=== PATIENT | male | born 1960 | race African-American/Black ===

== ENCOUNTER 2018-11-04 18:29 | Inpatient (IN) | payer OTHER ==
[~2018-11-04] VITALS: Ht 157.5 cm; Wt 92.5 kg
[2018-11-04] MEDS ORDERED: MORPHINE SULFATE 4 MG/ML SYR/VIAL IV ONE (19:45)
[2018-11-04] MEDS ORDERED: ONDANSETRON HCL 4 MG/2 ML VIAL IV ONE (19:45)
[2018-11-04 19:59] LABS: Basophils # (auto) 0 uL; Basophils % (auto) 0.2 % (0.0-2.0); Eosinophils # (auto) 0 uL; Eosinophils % (auto) 0.1 % (0.0-7.0); Hematocrit 39.3 % (41.0-53.0); Hemoglobin 13.4 g/dL (13.5-17.5); Lymphocytes # (auto) 0.7 uL; Lymphocytes % (auto) 8.6 % (10.0-50.0); Mean Corpuscular Hemoglobin 31.2 pg (28.0-32.0); Mean Corpuscular Hgb Conc. 34.1 g/dL (32.0-36.0); Mean Corpuscular Volume 91.4 fL (80.0-100.0); Monocytes # (auto) 0.3 uL; Monocytes % (auto) 4.2 % (0.0-12.0); Neutrophils # (auto) 6.7 uL; Neutrophils % (auto) 86.9 % (37.0-80.0); Platelet Count (auto) 403 10^3/uL (140-450); Red Cell Distribution Width 15.3 % (11.8-14.3); White Blood Cell 7.7 10^3/uL (4.4-10.8)
[2018-11-04 20:14] LABS: Albumin 3.3 g/dL (3.4-5.0); Calcium 8.2 mg/dL (8.5-10.1)
[2018-11-04] MEDS ORDERED: METOPROLOL TARTRATE 1MG/1ML-5ML VIAL IV ONE (20:15)
[2018-11-04] MEDS ORDERED: HYDROmorphone HCL 2 MG/ML VL IV ONE (20:15)
[2018-11-04 20:17] LABS: BUN/Creatinine Ratio 18.7; Bilirubin, Total 1.5 mg/dL (0.2-1.0); Total Protein 6.8 g/dL (6.4-8.2)
[2018-11-04] MEDS ORDERED: cefTRIAXone 1GM/50ML D5W 50 ML IV ONE ×2 (21:00→21:30)
[2018-11-04] MEDS ORDERED: ENOXAPARIN SOD 100 MG/1 ML SYRINGE SC ONE (21:30)
[2018-11-04] MEDS ORDERED: DIGOXIN (250MCG/ML) 2 ML AMPULE IV ONE (21:30)
[2018-11-04] MEDS ORDERED: DILTIAZEM HCL 25 MG/5 ML VIAL IV ONE (22:15)
[2018-11-04 22:39] LABS: INR 1.03 (0.9-1.15)
[2018-11-05] MEDS ORDERED: FUROSEMIDE 20 MG/2 ML VIAL IV ONE
[2018-11-05] MEDS ORDERED: DILTIAZEM HCL 25 MG/5 ML VIAL IV ONE (00:45)
[2018-11-05 01:11] LABS: Urine Bacteria NONE SEEN /hpf (None Seen); Urine Blood Negative /uL (Negative); Urine Specific Gravity 1.017 (1.001-1.035); Urine WBC 2 /hpf (0 - 3)
[2018-11-05 01:26] LABS: Alcohol, Urine < 3.0 mg/dL (0-5); Amphetamine Screen, Urine POSITIVE (NEGATIVE); Barbiturate Scree,Urine NEGATIVE (NEGATIVE); Benzodiazephine Screen, Urine NEGATIVE (NEGATIVE); Cannabinoid Screen, Urine NEGATIVE (NEGATIVE); Cocaine Screen, Urine NEGATIVE (NEGATIVE); Opiate Scree,Urine POSITIVE (NEGATIVE); Phencyclidine Screen, Urine NEGATIVE (NEGATIVE)
[2018-11-05] MEDS ORDERED: ONDANSETRON HCL 4 MG/2 ML VIAL IV PRN (01:45)
[2018-11-05] MEDS ORDERED: chlordiazePOXIDE HCL 25 MG CAP PO PRN (01:45)
[2018-11-05] MEDS ORDERED: MORPHINE SULFATE 4 MG/ML SYR/VIAL IV PRN (01:45)
[2018-11-05] MEDS ORDERED: ACETAMINOPHEN 500 MG TAB PO PRN (01:45)
[2018-11-05] MEDS ORDERED: LORazepam 2MG/ML-1ML VIAL IV PRN (01:45)
[2018-11-05] MEDS ORDERED: NITROGLYCERIN 0.4 MG SL TAB SL PRN (01:45)
[2018-11-05] MEDS ORDERED: AMIODARONE HCL (50 MG/ ML) 3 ML VIAL IV ONE ×2 (02:11→02:12)
[2018-11-05] MEDS ORDERED: AMIODARONE HCL 150 MG in D5W 5% 100 ML IV ONE (02:30)
[2018-11-05] MEDS ORDERED: AMIODARONE HCL 900 MG in DEXTROSE 500 ML IV SCH (02:30)
[2018-11-05] MEDS: AMIODARONE HCL 900 MG in DEXTROSE 500 ML IV SCH (08:51)
[2018-11-05 08:54] LABS: Cholesterol 136 mg/dL (< 200)
[2018-11-05 08:56] LABS: HDL Cholesterol 64 mg/dL (40-59); LDL Cholesterol 62 mg/dL (< 100); Triglycerides 41 mg/dL (< 150)
[2018-11-05] MEDS ORDERED: METOPROLOL TARTRATE 25 MG TAB PO SCH (10:00)
[2018-11-05] MEDS: ASPirin-EC 81 mg tab PO SCH (10:11)
[2018-11-05] MEDS: POTASSIUM CHL 20 Meq TABLET PO SCH (10:11)
[2018-11-05] MEDS: FAMOTIDINE 20 MG TAB PO SCH (10:11)
[2018-11-05] MEDS: ENOXAPARIN SOD 100 MG/1 ML SYRINGE SC SCH ×2 (10:11→21:31)
[2018-11-05] MEDS: METOPROLOL SUCCINATE XL 50 MG TAB PO SCH (10:11)
[2018-11-05] MEDS: FUROSEMIDE 40 MG/4 ML VIAL IV SCH (12:09)
[2018-11-05] MEDS: ENALAPRIL MALEATE 2.5 MG TAB PO SCH (12:09)
[2018-11-05] MEDS: NITROGLYCERIN 0.2MG/HR TOPICAL PATCH TD SCH (12:09)
[2018-11-05 20:15] VITALS: BP 134/85
--- NOTE | 2018-11-05 20:15 | NUR ---
Initial Assessment Patient received from ER. pt transferred himself to KEITH bed independently without incident. Patient is awake, alert, and oriented. Denies any pain, discomfort, palpations, SOB, or CP. RR even and unlabored with equal rise and fall on 2L o2 via N/C. PIV to RAC intact and patent with no s/s of infiltration or phlebitis-good blood return noted. Pt running Amiodarone gtt at 1/2 rate through in-line filter. Patient educated about S/S of IV infiltration and encouraged to call RN immediately if he notices any swelling or pain and he verbalized understanding. left groin has palpable mass that is non-tender to palpation and patient states pain has gone away. Neurovascular status intact with palpable distal pulses, capillary refill brisk, skin warm to touch. Patient educated about how to use the call light and encouraged to call when needing any assistance or wanting to get OOB and patient verbalized understanding. Bed in lowest position, side rails up, bed brakes set, all alarms audible, in direct view of nurses station. All VSS.
--- NOTE | 2018-11-05 20:30 | NUR ---
Consults cage operator to re-call consults because they have not been completed yet.
[2018-11-05 20:38] VITALS: BP 134/85
[2018-11-05] MEDS ORDERED: cefTRIAXone 1GM/50ML D5W 50 ML IV SCH (21:00)
--- NOTE | 2018-11-05 21:00 | NUR ---
Pending MRI Note that RN is unable to complete pelvis MRI at this time due to no MRI available on night club manager. Will endorse to day shift RN.
[2018-11-05] MEDS: ATORVASTATIN 20 MG TAB PO SCH (21:30)
--- NOTE | 2018-11-05 22:00 | NUR ---
IV insertion IV access obtained, via clean sterile technique by inserting 20 gauge catheter at LFA after 1 attempt(s). IV secured properly. No trauma to site. Patient tolerated well.
--- NOTE | 2018-11-05 22:45 | NUR ---
Ongoing photography colorist went into patients room to check on patient and he was awake, alert, and in no distress but he was having shallow tachypneic respirations at 28/min. States he feels out of breath. No accessory muscle use noted. Sp02 89% on 2L N/C. Increased oxygenation to 4L/min via N/C. Lungs auscultated for crackles in bases. RN increased HOB to fowlers position. Assessed for possible allergic reaction to Rocephin and there is no facial swelling, stridor, pruritus, or rash. Pt maintains he has no allergies. After interventions, sp02 increased to 97-99%. RR has decreased to 20-24/min. Will notify hospitalist.
--- NOTE | 2018-11-05 22:52 | NUR ---
Hospitalist paged re: Update on patient status. Waiting for call back.
--- NOTE | 2018-11-05 23:25 | NUR ---
Hospitalist called back updated on status of patient, oxygenation issues, heart rhythm/rate, BP, lung sounds, tachypnea. She ordered: -administer 40mg lasix IV x1 -continue amiodarone gtt until inspector elevators sees patient RN performed TORB and CHRONOMETER ASSEMBLER AND ADJUSTER verified order to be correct. No additional orders received.
[2018-11-05] MEDS ORDERED: FUROSEMIDE 40 MG/4 ML VIAL IV ONE (23:30)
[2018-11-06] VITALS: BP 134/96
--- NOTE | 2018-11-06 01:00 | NUR ---
Ongoing Assessment SOB has subsided. O2 is back down to 2L via N/C. RR even and unlabored with equal rise and fall. Voided 550ml post Lasix administration. Patient provided with additional blankets for comfort and room made warmer. Pt continues to deny pain. Sleeping intermittently. Visitor at bedside. Patient turning self independently and frequently. Neurovascular status intact. Pt states he is comfortable. States "no" when asked if he needs anything. Patient does remain passive to care and interventions-RN providing education and encouragement. Fall/safety precautions intact, all alarms audible. Call light, urinal, and side table are within reach. All VSS.
--- NOTE | 2018-11-06 01:45 | NUR ---
Pt. refusing oxygen RN went into patient's room due to sp02 in the 80's. Pt had nasal cannula off. RN attempted to place nasal cannula back on face and patient is refusing. Patient states "will you stop waking me up every 5 minutes!" "Will you do that!" primary RN and boarding house manager explained to patient the importance of wearing oxygen and the risks of having low oxygen levels in body. Patient continues to refuse to wear nasal cannula. Pt is asymptomatic with no accessory muscle use, SOB, or tachypnea noted. Sp02 fluctuates between mid 80's to 93%. Patient's significant other is at bedside and heard education as well. Note that patient is alert and oriented x4. RN will continue to monitor, educate, and encourage oxygen use.
[2018-11-06] MEDS: AMIODARONE HCL 900 MG in DEXTROSE 500 ML IV SCH (02:05)
--- NOTE | 2018-11-06 03:02 | NUR ---
EKG taken Pt requesting not to be bothered but 0300 lab draw due. RN went in to [facility] and performed ordered 0600 EKG at this time. Note that patient has since put his oxygen back on.
[2018-11-06 04:00] VITALS: BP 135/46
--- NOTE | 2018-11-06 05:45 | NUR ---
IV removal/pt refusing new IV IV to RAC DC'd with clean sterile technique, catheter fully intact. Pressure dressing applied to site. Patient tolerated well. Note there is no erythema, edema, or phlebitis to IV site. NOTE: d/c due to leaking Pt refusing new IV insertion at this time despite education. Amiodarone gtt switched to LFA.
--- NOTE | 2018-11-06 07:15 | NUR ---
Report given No changes or incidents to report. Pt in stable condition. Care endorsed to day shift RN.
[2018-11-06 08:00] VITALS: BP 143/94
--- NOTE | 2018-11-06 08:00 | NUR ---
Opening Shift Note Assumed care of patient, awake and alert. No S/S of distress/SOB or pain. Patient refuses to wear oxygen at times, saturation 95% at this time. Patient A-flutter, HR 96. Amiodarone running at 0.5mg/min via LT forearm, IV site asymptomatic. See interventions for complete assessment. Bed locked on low position, side rails up x2, bed alarms on at all times, call martins within reach, instructed on POC and to call for assist PRN, will continue to monitor for changes Q1hr and PRN.
--- NOTE | 2018-11-06 09:30 | NUR ---
Patient refused Lasix, Lovenox and Nitro patch because he feels he doesn't need it. Educated on the indication of his meds and repercussions of not getting it. Patient still refused.
[2018-11-06] MEDS: ASPirin-EC 81 mg tab PO SCH (09:36)
[2018-11-06] MEDS: FUROSEMIDE 40 MG/4 ML VIAL IV SCH ×2 (09:36→10:00)
[2018-11-06] MEDS: POTASSIUM CHL 20 Meq TABLET PO SCH (09:36)
[2018-11-06] MEDS: METOPROLOL SUCCINATE XL 50 MG TAB PO SCH (09:37)
[2018-11-06] MEDS: FAMOTIDINE 20 MG TAB PO SCH (09:37)
[2018-11-06] MEDS: ENALAPRIL MALEATE 2.5 MG TAB PO SCH (09:38)
[2018-11-06] MEDS: ENOXAPARIN SOD 100 MG/1 ML SYRINGE SC SCH ×4 (09:38→21:31)
[2018-11-06] MEDS: NITROGLYCERIN 0.2MG/HR TOPICAL PATCH TD SCH (10:00)
--- NOTE | 2018-11-06 11:14 | NUR ---
Called in Urology consult and paged Dr Abreu for Cardiology consult.
--- NOTE | 2018-11-06 11:16 | NUR ---
Spoke to Dr Abreu over the phone, updated on patient's status. Will come to see patient.
--- NOTE | 2018-11-06 11:37 | NUR ---
Dr Abreu at bedside to assess patient. Updated on patient's status. Received verbal order to start patient on Cardizem and Amiodarone PO and discontinue Amiodarone drip. Will carry out.
[2018-11-06] MEDS ORDERED: AMIODARONE HCL 200 MG TAB PO ONE (11:45)
[2018-11-06] MEDS ORDERED: DILTIAZEM HCL 120MG ER CAP PO ONE (11:45)
[2018-11-06 11:50] VITALS: BP 133/97
--- NOTE | 2018-11-06 13:30 | NUR ---
Dr Thomas at bedside to assess patient, updated on patients status. Will carry out new orders.
[2018-11-06] MEDS ORDERED: GADOPENTETATE DIMEGLUMINE (10MMOL/20 ML) VIAL IV ONE (13:34)
[2018-11-06] MEDS ORDERED: FOLIC ACID 1 MG TAB PO ONE (14:00)
[2018-11-06] MEDS ORDERED: THIAMINE HCL 100 MG TAB PO ONE (14:00)
--- NOTE | 2018-11-06 14:12 | NUR ---
Patient out of room via wheelchair to MRI, fall precautions in placed.
--- NOTE | 2018-11-06 15:03 | NUR ---
Patient back to room from MRI. VS WNL. Will continue to monitor.
[2018-11-06 15:50] VITALS: BP 128/67
--- NOTE | 2018-11-06 19:30 | NUR ---
Opening Shift Note Assumed care of patient, sleeping. Easily awoken by voice and touch. Patient is an grumpy mood. No S/S of distress/SOB or pain. Patient refuses to wear oxygen at times, POX 94%. Patient A-flutter, HR 89. LFA IV site asymptomatic. Physical assessment completed, see interventions. Significant other at bedside. Bed locked on low position, side rails up x2, bed alarms on at all times, call martins within reach. Instructed on POC and to call for assist PRN, will continue to monitor for changes Q1hr and PRN.
[2018-11-06 19:50] VITALS: BP 106/59
[2018-11-06] MEDS ORDERED: cefTRIAXone 1GM/50ML D5W 50 ML IV SCH (21:00)
[2018-11-06] MEDS: ATORVASTATIN 20 MG TAB PO SCH (21:56)
[2018-11-06] MEDS: AMIODARONE HCL 200 MG TAB PO SCH (21:56)
[2018-11-06] MEDS: METOPROLOL TARTRATE 25 MG TAB PO SCH (21:57)
[2018-11-07] VITALS (7 sets, daily range): BP systolic 97–126; BP diastolic 66–83
--- NOTE | 2018-11-07 00:45 | NUR ---
ROUNDS PATIENT LAYING IN BED SLEEPING. NO SOB, DISTRESS OR PAIN NOTED. VS STABLE. WILL CONTINUE TO CLOSELY MONITOR.
--- NOTE | 2018-11-07 05:30 | NUR ---
PATIENT REFUSED MORNING CARE SAID HE WILL DO IT ON HIS OWN WHEN HE WAKES UP.
[2018-11-07 06:14] LABS: Basophils # (auto) 0 uL; Basophils % (auto) 0.3 % (0.0-2.0); Eosinophils # (auto) 0.1 uL; Hematocrit 38.6 % (41.0-53.0); Hemoglobin 13.4 g/dL (13.5-17.5); Lymphocytes # (auto) 1.8 uL; Lymphocytes % (auto) 19.9 % (10.0-50.0); Mean Corpuscular Hemoglobin 31.4 pg (28.0-32.0); Mean Corpuscular Hgb Conc. 34.7 g/dL (32.0-36.0); Mean Corpuscular Volume 90.5 fL (80.0-100.0); Monocytes % (auto) 11.1 % (0.0-12.0); Neutrophils % (auto) 67.7 % (37.0-80.0); Platelet Count (auto) 337 10^3/uL (140-450); Red Blood Cells 4.26 10^6/uL (4.5-5.90); Red Cell Distribution Width 15.5 % (11.8-14.3); White Blood Cell 8.9 10^3/uL (4.4-10.8)
[2018-11-07 06:25] LABS: BUN/Creatinine Ratio 17.5; Calcium 8.2 mg/dL (8.5-10.1); Potassium 4.1 mmol/L (3.5-5.1)
--- NOTE | 2018-11-07 07:20 | NUR ---
END OF SHIFT REPORT GIVEN AND CARE ENDORSED TO DAY SHIFT RN.
--- NOTE | 2018-11-07 09:27 | NUR ---
UROLOGY JOHN BERRIOS AT BEDSIDE, EXAMINED PATIENT AND SPOKE WITH HIM AND . ALL QUESTIONS/CONCERNS ADDRESSED.
[2018-11-07] MEDS: FUROSEMIDE 40 MG/4 ML VIAL IV SCH (09:37)
[2018-11-07] MEDS: ENALAPRIL MALEATE 2.5 MG TAB PO SCH (09:37)
[2018-11-07] MEDS: AMIODARONE HCL 200 MG TAB PO SCH (09:37)
[2018-11-07] MEDS: POTASSIUM CHL 20 Meq TABLET PO SCH (09:38)
[2018-11-07] MEDS: FAMOTIDINE 20 MG TAB PO SCH (09:38)
[2018-11-07] MEDS: METOPROLOL TARTRATE 25 MG TAB PO SCH (09:39)
[2018-11-07] MEDS: ENOXAPARIN SOD 100 MG/1 ML SYRINGE SC SCH (09:39)
[2018-11-07] MEDS: ASPirin-EC 81 mg tab PO SCH (09:39)
[2018-11-07] MEDS ORDERED: FOLIC ACID 1 MG TAB PO SCH (10:00)
[2018-11-07] MEDS ORDERED: THIAMINE HCL 100 MG TAB PO SCH (10:00)
[2018-11-07] MEDS ORDERED: DILTIAZEM HCL 120MG ER CAP PO SCH (10:00)
--- NOTE | 2018-11-07 14:00 | NUR ---
NOVA AT BEDSIDE AND GAVE NEW ORDER TO DISCHARGE HOME, DR CALLED IN NEW PRESCRIPTIONS TO [facility]. DR EXAMINED PATIENT AND SPOKE WITH HIM AND SIGNIFICANT OTHERS REGARDING NEW MEDICATIONS AND DISCHARGE DIAGNOSES.
[2018-11-07] MEDS ORDERED: MET25T PO (14:07)
[2018-11-07] MEDS ORDERED: ENA2.5T PO (14:07)
[2018-11-07] MEDS ORDERED: APIX5TAB OR (14:07)
[2018-11-07] MEDS ORDERED: AMI200T PO (14:07)
[2018-11-07] MEDS ORDERED: ATOR20TA50 PO (14:07)
[2018-11-07] MEDS ORDERED: FURO40TA4 PO (14:07)
--- NOTE | 2018-11-07 16:30 | NUR ---
PATIENT LEFT FACILITY VIA W/C ACCOMPANIED BY DOLORES RUVALCABA PER DISCHARGE ORDER FROM DR NOVA. LEFT WITH ALL BELONGINGS IN STABLE CONDITION WITH ALL NEW HOME MEDICATIONS FROM [facility] IN HAND. EXTENSIVE EDUCATION PROVIDED REGARDING ALL NEW MEDICATIONS AND DIAGNOSES AND DC INSTRUCTIONS. PER PATIENT/SIGNIFICANT OTHER HE DOES NOT HAVE PRIMARY CARE DOCTOR. PATIENT AWARE TO OBTAIN DOCTOR AND OBTAIN REFERRALS FOR UROLOGY/CARDIOLOGY. AWARE OF PHONE NUMBER TO CALL TO OBTAIN PCP THROUGH HIS INSURANCE. IV DISCONTINUED AND NAME BANDS REMOVED.
== END 2018-11-07 17:23 | disposition home or self-care (01) | DRG 812 ==
LOC: ER 18:33 → OVERFLOW 11-05 02:01 → DOU IN ICU 11-05 19:56
PROVIDERS: ADMIT Nurse Practitioner Family; ATTEND Internal Medicine
DX: T43.621A Poisoning by amphetamines, accidental (unintentional), initial encounter (principal); I50.43 Acute on chronic combined systolic (congestive) and diastolic (congestive) heart failure; D68.69 Other thrombophilia; I42.7 Cardiomyopathy due to drug and external agent; E44.1 Mild protein-calorie malnutrition; N18.3 Chronic kidney disease, stage 3 (moderate); I48.0 Paroxysmal atrial fibrillation; N45.1 Epididymitis; I11.0 Hypertensive heart disease with heart failure; R74.8 Abnormal levels of other serum enzymes; N50.9 Disorder of male genital organs, unspecified; F19.10 Other psychoactive substance abuse, uncomplicated; N28.9 Disorder of kidney and ureter, unspecified; F15.10 Other stimulant abuse, uncomplicated; I08.0 Rheumatic disorders of both mitral and aortic valves; Y92.098 Other place in other non-institutional residence as the place of occurrence of the external cause; I48.92 Unspecified atrial flutter; F17.210 Nicotine dependence, cigarettes, uncomplicated; D17.79 Benign lipomatous neoplasm of other sites; I13.0 Hypertensive heart and chronic kidney disease with heart failure and stage 1 through stage 4 chronic kidney disease, or unspecified chronic kidney disease; N50.89 Other specified disorders of the male genital organs; Z82.49 Family history of ischemic heart disease and other diseases of the circulatory system; Z83.3 Family history of diabetes mellitus; Z68.37 Body mass index [BMI] 37.0-37.9, adult; Z72.89 Other problems related to lifestyle; Z71.6 Tobacco abuse counseling
CPT/HCPCS: 36415; 71045; 73723; 76870; 80048; 80053; 80061; 80307; 81001; 82550; 83880; 84443; 84484; 85025; 85379; 85610; 85730; 87081; 93005; 93306; 96374; 96375; 96376; G0378; J0696; J2405; J7060

== ENCOUNTER 2018-12-23 08:08 | Inpatient (IN) | payer OTHER | END 2018-12-29 14:10 | disposition home or self-care (01) | LOC: TELE-WESTW 12-28 03:12 → ER 08:08 → TELE-WESTW 12-28 04:23 → TELE 13:16 → DOU IN ICU 20:50 | PROC: B246ZZ4 Ultrasonography of Right and Left Heart, Transesophageal (ICD-10-PCS; principal; ~2018-12-23) | PROC: 5A2204Z Restoration of Cardiac Rhythm, Single (ICD-10-PCS; ~2018-12-23) | DX: J18.1 Lobar pneumonia, unspecified organism (principal); N17.0 Acute kidney failure with tubular necrosis; I50.43 Acute on chronic combined systolic (congestive) and diastolic (congestive) heart failure; D68.69 Other thrombophilia; E83.51 Hypocalcemia; I07.1 Rheumatic tricuspid insufficiency; I42.7 Cardiomyopathy due to drug and external agent; I13.0 Hypertensive heart and chronic kidney disease with heart failure and stage 1 through stage 4 chronic kidney disease, or unspecified chronic kidney disease; I48.2 Chronic atrial fibrillation; I48.91 Unspecified atrial fibrillation; I48.92 Unspecified atrial flutter; Z79.01 Long term (current) use of anticoagulants; R79.1 Abnormal coagulation profile; N18.9 Chronic kidney disease, unspecified; F15.10 Other stimulant abuse, uncomplicated; E03.9 Hypothyroidism, unspecified; F17.210 Nicotine dependence, cigarettes, uncomplicated; I42.0 Dilated cardiomyopathy ==

== ENCOUNTER → 2020-08-14 | Emergency (ER) | payer OTHER ==
[~2020-08-14] VITALS: Ht 185.4 cm; Wt 88.5 kg
[~2020-08-14] MED LIST: ACETAMINOPHEN 325 MG TAB PO ONE; APIX5TAB OR; ATOR20TA50 PO; ENAL2.5T11 PO; FURO40TA4 PO; MULT-1018 PO
[2020-08-14 23:49] LABS: Basophils # (auto) 0 10 ^3/uL (0-0.2); Basophils % (auto) 0.3 % (0.0-2.0); Eosinophils # (auto) 0 10 ^3/uL (0-0.8); Hemoglobin 13.3 g/dL (13.5-17.5); Lymphocytes # (auto) 0.2 10 ^3/uL (0.4-5.4); Lymphocytes % (auto) 3.9 % (10.0-50.0); Mean Corpuscular Hemoglobin 31.5 pg (28.0-32.0); Mean Corpuscular Hgb Conc. 34.2 g/dL (32.0-36.0); Mean Corpuscular Volume 92.1 fL (80.0-100.0); Monocytes # (auto) 0.4 10 ^3/uL (0-1.3); Monocytes % (auto) 8.5 % (0.0-12.0); Neutrophils # (auto) 4.1 10 ^3/uL (1.6-8.6); Neutrophils % (auto) 87.3 % (37.0-80.0); Nucleated Red Blood Cells % 0.1 %; Platelet Count (auto) 202 10^3/uL (140-450); Red Blood Cells 4.24 10^6/uL (4.5-5.90); Red Cell Distribution Width 14.1 % (11.8-14.3); White Blood Cell 4.7 10^3/uL (4.4-10.8)
[2020-08-15 00:01] VITALS: BP 82/57
[2020-08-15 00:09] LABS: Albumin 3.3 g/dL (3.4-5.0); Calcium 8.1 mg/dL (8.5-10.1); Potassium 4.1 mmol/L (3.5-5.1)
[2020-08-15 00:11] LABS: BUN/Creatinine Ratio 16.4
[2020-08-15 00:14] LABS: Bilirubin, Total 1.2 mg/dL (0.2-1.0); Total Protein 7.2 g/dL (6.4-8.2)
== END | disposition left against medical advice (07) ==
LOC: ER 22:54
DX: R05 Cough (principal); Z53.21 Procedure and treatment not carried out due to patient leaving prior to being seen by health care provider
CPT/HCPCS: 36415; 80053; 85025; 87426

== ENCOUNTER 2021-12-06 17:15 | Inpatient (IN) | payer OTHER ==
[~2021-12-06] VITALS: Ht 185.4 cm; Wt 85.4 kg
[~2021-12-06 17:15] MED LIST changes: -ACETAMINOPHEN 325 MG TAB PO ONE
[2021-12-06 18:05] LABS: Basophils # (auto) 0 10 ^3/uL (0-0.2); Basophils % (auto) 0.5 % (0.0-2.0); Eosinophils # (auto) 0.2 10 ^3/uL (0-0.8); Eosinophils % (auto) 2.3 % (0.0-7.0); Hematocrit 39.4 % (41.0-53.0); Hemoglobin 13.2 g/dL (13.5-17.5); Lymphocytes # (auto) 1.3 10 ^3/uL (0.4-5.4); Lymphocytes % (auto) 17.7 % (10.0-50.0); Mean Corpuscular Hemoglobin 30.4 pg (28.0-32.0); Mean Corpuscular Hgb Conc. 33.6 g/dL (32.0-36.0); Mean Corpuscular Volume 90.6 fL (80.0-100.0); Monocytes # (auto) 0.7 10 ^3/uL (0-1.3); Monocytes % (auto) 8.9 % (0.0-12.0); Neutrophils # (auto) 5.2 10 ^3/uL (1.6-8.6); Neutrophils % (auto) 70.6 % (37.0-80.0); Nucleated Red Blood Cells % 0.4 %; Red Blood Cells 4.35 10^6/uL (4.5-5.90); Red Cell Distribution Width 15.2 % (11.8-14.3); White Blood Cell 7.4 10^3/uL (4.4-10.8)
[2021-12-06] MEDS ORDERED: IOHEXOL 300 MG/ML 100ML BOTTLE IJ ONE (18:13)
[2021-12-06] MEDS ORDERED: IOHEXOL 350 MG/ML 100ML IJ ONE (18:15)
[2021-12-06 18:27] LABS: Albumin 3.6 g/dL (3.4-5.0); Calcium 8.5 mg/dL (8.5-10.1); Magnesium 2.3 mg/dL (1.6-2.6); Potassium 4.2 mmol/L (3.5-5.1)
[2021-12-06 18:32] LABS: Bilirubin, Total 1.4 mg/dL (0.2-1.0); Total Protein 7.1 g/dL (6.4-8.2)
[2021-12-06] MEDS ORDERED: SODIUM CHLORIDE 0.9% 1,000 ML IV ONE (19:15)
[2021-12-06] MEDS ORDERED: cefTRIAXone 1GM/50ML D5W 50 ML IV ONE (20:00)
[2021-12-06 21:12] LABS: Urine Bacteria NONE SEEN /hpf (None Seen); Urine Blood Negative /uL (Negative); Urine WBC <1 /hpf (0 - 3)
[2021-12-06 21:13] LABS: Urine Specific Gravity 1.045 (1.001-1.035)
[2021-12-06] MEDS ORDERED: METOPROLOL TARTRATE 1MG/1ML-5ML VIAL IV ONE (22:00)
[2021-12-06] MEDS ORDERED: FUROSEMIDE 40 MG/4 ML VIAL IV ONE (22:15)
[2021-12-06] MEDS ORDERED: dilTIAZem 25 MG/5 ML VIAL IV ONE ×2 (22:15→22:21)
[2021-12-06] MEDS ORDERED: MORPHINE SULFATE INJECTION 2 MG/ML SYRG IV PRN (23:15)
[2021-12-06] MEDS ORDERED: DOCUSATE SOD 100 MG CAP PO PRN (23:15)
[2021-12-06] MEDS ORDERED: NITROGLYCERIN 0.4 MG SL TAB SL PRN (23:15)
[2021-12-06] MEDS ORDERED: APIXABAN 5 MG TAB PO SCH (23:15)
[2021-12-06] MEDS ORDERED: ONDANSETRON HCL 4 MG/2 ML VIAL IV PRN (23:15)
[2021-12-06] MEDS: ATORVASTATIN 20 MG TAB PO SCH (23:50)
[2021-12-07] VITALS (8 sets, daily range): BP systolic 100–139; BP diastolic 68–83
[2021-12-07 05:38] LABS: Basophils # (auto) 0.1 10 ^3/uL (0-0.2); Basophils % (auto) 0.8 % (0.0-2.0); Eosinophils # (auto) 0.1 10 ^3/uL (0-0.8); Eosinophils % (auto) 2.1 % (0.0-7.0); Hematocrit 37.3 % (41.0-53.0); Hemoglobin 12.8 g/dL (13.5-17.5); Lymphocytes # (auto) 0.9 10 ^3/uL (0.4-5.4); Lymphocytes % (auto) 12.7 % (10.0-50.0); Mean Corpuscular Hemoglobin 30.8 pg (28.0-32.0); Mean Corpuscular Hgb Conc. 34.5 g/dL (32.0-36.0); Mean Corpuscular Volume 89.3 fL (80.0-100.0); Monocytes # (auto) 0.5 10 ^3/uL (0-1.3); Monocytes % (auto) 6.8 % (0.0-12.0); Neutrophils # (auto) 5.3 10 ^3/uL (1.6-8.6); Neutrophils % (auto) 77.6 % (37.0-80.0); Red Blood Cells 4.18 10^6/uL (4.5-5.90); Red Cell Distribution Width 15.1 % (11.8-14.3); White Blood Cell 6.8 10^3/uL (4.4-10.8)
[2021-12-07 05:57] LABS: Albumin 3.4 g/dL (3.4-5.0); Calcium 8.4 mg/dL (8.5-10.1); Potassium 4.1 mmol/L (3.5-5.1)
[2021-12-07 06:00] LABS: BUN/Creatinine Ratio 12.3; Bilirubin, Direct 0.4 mg/dL (0-0.2); Bilirubin, Total 1.2 mg/dL (0.2-1.0); CRP High Sensitivity 0.92 mg/dL (< 0.3); Total Protein 6.8 g/dL (6.4-8.2)
[2021-12-07] MEDS: FUROSEMIDE 20 MG/2 ML VIAL IV SCH ×2 (06:38→18:40)
[2021-12-07] MEDS ORDERED: METOPROLOL TARTRATE 25 MG TAB PO SCH (07:15)
[2021-12-07] MEDS: METOPROLOL TARTRATE 25 MG TAB PO SCH ×2 (07:57→22:00)
[2021-12-07] MEDS ORDERED: DRONEDARONE HCL 400 MG TAB PO SCH ×3 (09:15→10:00)
[2021-12-07] MEDS ORDERED: AMIODARONE HCL 150 MG in D5W 5% 100 ML IV ONE (10:00)
[2021-12-07] MEDS: APIXABAN 5 MG TAB PO SCH ×3 (10:09→23:05)
[2021-12-07] MEDS ORDERED: AMIODARONE 450mg/250ml AE 250 ML IV SCH (10:15)
[2021-12-07 13:38] LABS: INR 1.22 (0.9-1.15)
[2021-12-07] MEDS ORDERED: LORazepam 2MG/ML-1ML VIAL IV ONE (16:45)
[2021-12-07] MEDS ORDERED: ZOLPIDEM TARTRATE 5 MG TAB PO PRN (16:45)
[2021-12-07] MEDS: AMIODARONE 450mg/250ml AE 250 ML IV SCH (18:21)
[2021-12-07] MEDS: ATORVASTATIN 20 MG TAB PO SCH (23:05)
[2021-12-08] MEDS ORDERED: FUROSEMIDE 20 MG/2 ML VIAL IV ONE
[2021-12-08 05:00] VITALS: BP 117/69
[2021-12-08] MEDS: FUROSEMIDE 20 MG/2 ML VIAL IV SCH (06:46)
[2021-12-08] MEDS: AMIODARONE 450mg/250ml AE 250 ML IV SCH (07:35)
[2021-12-08 08:46] VITALS: BP 114/60
[2021-12-08] MEDS: METOPROLOL TARTRATE 25 MG TAB PO SCH (10:40)
[2021-12-08] MEDS: APIXABAN 5 MG TAB PO SCH (10:40)
[2021-12-08 12:38] VITALS: BP 98/59
[2021-12-08] MEDS ORDERED: VERI2.5T PO (13:38)
[2021-12-08] MEDS ORDERED: AMIO200T33 PO (13:38)
[2021-12-08] MEDS ORDERED: MET25T PO (13:38)
[2021-12-08 14:29] VITALS: BP 94/64
== END 2021-12-08 16:06 | disposition home health service (06) | DRG 194 ==
LOC: EDBD 17:15 → ER 17:15 → TELE 23:08 → EDUNIT# 23:08 → TELE-EAST 12-07 09:24 → OBSVTOIN 12-08 16:03
PROVIDERS: ADMIT Hospitalist; ATTEND Hospitalist
DX: I11.0 Hypertensive heart disease with heart failure (principal); I42.0 Dilated cardiomyopathy; I48.92 Unspecified atrial flutter; Z79.01 Long term (current) use of anticoagulants; I48.91 Unspecified atrial fibrillation; E78.5 Hyperlipidemia, unspecified; F17.210 Nicotine dependence, cigarettes, uncomplicated; R91.1 Solitary pulmonary nodule; Z20.822 Contact with and (suspected) exposure to COVID-19; R00.0 Tachycardia, unspecified; R79.89 Other specified abnormal findings of blood chemistry; Z86.718 Personal history of other venous thrombosis and embolism; I50.23 Acute on chronic systolic (congestive) heart failure
CPT/HCPCS: 36415; 36600; 71045; 71275; 76705; 80053; 81001; 82248; 82805; 83010; 83605; 83615; 83735; 83880; 84484; 85025; 85045; 85379; 85610; 85652; 86141; 86880; 87040; 93005; 93306; 93971; 96361; 96365; 96375; G0378; J0696; J2405; J7060